=== PATIENT | female | born 1935 | race Caucasian/White ===

== ENCOUNTER 2017-06-07 10:51 | Emergency (ER) | payer MEDICARE, OTHER ==
--- NOTE | 2017-06-07 11:23 | EDM.PDOC ---
ED HPI GENERAL MEDICAL PROBLEM - General Chief Complaint: General Stated Complaint: DIZZINESS, HEART RACING Time Seen by Provider: 06/07/17 11:11 Source of Information: Reports: Patient History Limitations: Reports: No Limitations - History of Present Illness INITIAL COMMENTS - FREE TEXT/NARRATIVE: HISTORY AND PHYSICAL: History of present illness: [82-year-old female with a one-year history of lightheadedness now presents to the emergency department because of the same symptoms. One year ago patient was lightheaded and presented to our emergency department. She was admitted for a full workup including full neurologic and cardiac workup. The evaluation was remarkable for some mild left carotid stenosis which did not require intervention. MRI of her head was unremarkable and patient wore a Holter monitor for a month the results of which were negative she was evaluated fully by substance abuse clinician and an echocardiogram was benign. Her substance abuse clinician Dr. Quiles recommended that no further workup or interventions were indicated and that her "heart is in great shape. " Patient has continued to intermittently have the symptoms over the past year after the complete workup. Per granddaughter the default diagnosis was that she was suffering from anxiety. She has continued to be anxious about these symptoms and presented to the emergency department again after a typical episode. Patient is very worried that something might be wrong. She had no chest pain at any time. She has no focal neurologic deficit or complaint. Normal vision speech strength coordination sensation and gait. Review of systems: As per history of present illness and below otherwise all systems reviewed and negative. Past medical history: As per history of present illness and as reviewed below otherwise noncontributory. Surgical history: As per history of present illness and as reviewed below otherwise noncontributory. Social history: No reported history of drug or alcohol abuse. Family history: As per history of present illness and as reviewed below otherwise noncontributory. Physical exam: Mildly anxious elderly female perfectly groomed in no acute distress alert vigorous cooperative and communicative with supple neck clear lungs regular rate and rhythm noted ,no arrhythmia benign abdomen normal extremities nonfocal extended neuro exam HEENT: Atraumatic, normocephalic, pupils reactive, negative for conjunctival pallor or scleral icterus, mucous membranes moist, throat clear, neck supple, nontender, trachea midline. Lungs: Clear to auscultation, breath sounds equal bilaterally, chest nontender. Heart: S1S2, regular, negative for clicks, rubs, or JVD. Abdomen: Soft, nondistended, nontender. Negative for masses or hepatosplenomegaly. Negative for costovertebral tenderness. Pelvis: Stable nontender. Genitourinary: Deferred. Rectal: Deferred. Extremities: Atraumatic, negative for cords or calf pain. Neurovascular unremarkable. Neuro: Awake, alert, oriented. Cranial nerves II through XII unremarkable. Cerebellum unremarkable. Motor and sensory unremarkable throughout. Exam nonfocal. Diagnostics: [Normal sinus rhythm at 70 normal axis no STEMI Chest x-ray no acute disease interpreted by me report reviewed] Therapeutics: [IV fluids administered] Impression: [Lightheadedness Anxiety regarding medical condition] Plan: [Signs and symptoms consistent with anxiety regarding medical condition elderly patient is perfectly functional and nonfocal neurologically with the same symptoms of intermittent lightheadedness for a year after an exhaustive workup which was negative. Results today benign. Patient feels baseline on reevaluation prior to discharge. Case discussed with primary care Dr. Yanez is aware of history and findings and agrees with outpatient follow-up. Call placed to Dr. Henriquez patient's substance abuse clinician to inform him of her presentation and arrange outpatient follow-up.] Definitive disposition and diagnosis as appropriate pending reevaluation and review of above. - Related Data Allergies Allergy/AdvReac Type Severity Reaction Status Date / Time codeine Allergy Cannot Verified 10/14/16 11:13 Remember diphenhydramine Allergy Cannot Verified 10/14/16 11:14 Remember meperidine [From Demerol] Allergy Cannot Verified 10/14/16 11:14 Remember propoxyphene [From Darvon] Allergy Cannot Verified 10/14/16 11:14 Remember Home Meds: Home Meds Losartan [Cozaar] 100 mg PO DAILY 10/14/16 [History] Simvastatin [Zocor] 10 mg PO BEDTIME #30 tablet 10/15/16 [Rx] Past Medical History HEENT History: Reports: Cataract Cardiovascular History: Reports: Hypertension Respiratory History: Reports: None Gastrointestinal History: Reports: None Genitourinary History: Reports: Hydronephrosis, Renal Calculus 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: Musculoskeletal History: Reports: Arthritis - Infectious Disease History Infectious Disease History: Reports: Chicken Pox - Past Surgical History HEENT Surgical History: Reports: Cataract Surgery, Tonsillectomy Musculoskeletal Surgical History: Reports: Hip Replacement Social & Family History - Family History Cardiac: Reports: Pacemaker Other Cardiac Family History: mother had pacemaker OBGYN: Reports: Neurological: Reports: CVA Other Neurological Family History: father of stroke; mother had a stroke Oncologic: Reports: Colon - Tobacco Use Smoking Status *Q: Never Smoker Second Hand Smoke Exposure: No - Caffeine Use Caffeine Use: Reports: None - Recreational Drug Use Recreational Drug Use: No ED ROS GENERAL - Review of Systems Review Of Systems: See Below (History of present illness) ED EXAM, GENERAL - Physical Exam Exam: See Below (History of present illness) Course - Vital Signs Last Recorded V/S: Last Vital Signs Temp 35.9 C 06/07/17 10:58 Pulse 69 06/07/17 10:58 Resp 18 06/07/17 10:58 BP 204/97 H 06/07/17 10:58 Pulse Ox 98 06/07/17 10:58 - Orders/Labs/Meds Orders: Active Orders 24 hr Category Date Time Status EKG 12 Lead [EKG Documentation Completion] [RC] STAT Care 06/07/17 11:25 Active EKG Documentation Completion [RC] STAT Care 06/07/17 11:36 Inactive Labs: Laboratory Tests 06/07/17 06/07/17 06/07/17 Range/Units 10:55 10:55 11:44 WBC 8.21 (4.0-11.0) K/uL RBC 4.65 (4.30-5.90) M/uL Hgb 14.5 (12.0-16.0) g/dL Hct 42.1 (36.0-46.0) % MCV 90.5 (80.0-98.0) fL MCH 31.2 (27.0-32.0) pg MCHC 34.4 (31.0-37.0) g/dL RDW Std Deviation 43.3 (28.0-62.0) fl RDW Coeff of [place] 13 (11.0-15.0) % Plt Count 255 (150-400) K/uL MPV 9.60 (7.40-12.00) fL Neut % (Auto) 59.0 (48.0-80.0) % Lymph % (Auto) 23.1 (16.0-40.0) % [place] % (Auto) 13.6 (0.0-15.0) % Eos % (Auto) 3.4 (0.0-7.0) % Baso % (Auto) 0.9 (0.0-1.5) % Neut # (Auto) 4.8 (1.4-5.7) K/uL Lymph # (Auto) 1.9 (0.6-2.4) K/uL [place] # (Auto) 1.1 H (0.0-0.8) K/uL Eos # (Auto) 0.3 (0.0-0.7) K/uL Baso # (Auto) 0.1 (0.0-0.1) K/uL Nucleated RBC % 0.0 /100WBC Nucleated RBCs # 0 K/uL Sodium 134 L (136-146) mmol/L Potassium 4.3 (3.5-5.1) mmol/L Chloride 103 (98-110) mmol/L Carbon Dioxide 21 (21-31) mmol/L BUN 16 (6.0-23.0) mg/dL Creatinine 0.9 (0.6-1.5) mg/dL Est Cr Clr Drug Dosing 36.37 mL/min Estimated GFR (MDRD) 59.9 ml/min Glucose 121 H (60-110) mg/dL Calcium 9.6 (8.8-10.8) mg/dL Total Bilirubin 0.6 (0.1-1.5) mg/dL AST 27 (5-40) IU/L ALT 21 (8-54) IU/L Alkaline Phosphatase 136 (40-150) Troponin I < 0.10 (0.0-0.29) NG/ML Total Protein 7.2 (6.0-8.0) g/dL Albumin 4.3 (3.4-4.8) g/dL Globulin 2.9 (2.0-3.5) g/dL Albumin/Globulin Ratio 1.5 (1.3-2.8) TSH 3rd Generation 4.39 (0.47-5.0) uIU/mL Urine Color Urine Appearance Urine pH (5.0-8.0) Ur Specific [place] (1.001-1.035) Urine Protein (NEGATIVE) mg/dL Urine Glucose (UA) (NEGATIVE) mg/dL Urine Ketones (NEGATIVE) mg/dL Urine Occult Blood (NEGATIVE) Urine Nitrite (NEGATIVE) Urine Bilirubin (NEGATIVE) Urine Urobilinogen (<2.0) EU/dL Ur Leukocyte Esterase (NEGATIVE) Urine RBC (0-2/HPF) Urine WBC (0-5/HPF) Ur Epithelial Cells (NONE-FEW) Urine Bacteria (NEGATIVE) 06/07/17 Range/Units 12:35 WBC (4.0-11.0) K/uL RBC (4.30-5.90) M/uL Hgb (12.0-16.0) g/dL Hct (36.0-46.0) % MCV (80.0-98.0) fL MCH (27.0-32.0) pg MCHC (31.0-37.0) g/dL RDW Std Deviation (28.0-62.0) fl RDW Coeff of [place] (11.0-15.0) % Plt Count (150-400) K/uL MPV (7.40-12.00) fL Neut % (Auto) (48.0-80.0) % Lymph % (Auto) (16.0-40.0) % [place] % (Auto) (0.0-15.0) % Eos % (Auto) (0.0-7.0) % Baso % (Auto) (0.0-1.5) % Neut # (Auto) (1.4-5.7) K/uL Lymph # (Auto) (0.6-2.4) K/uL [place] # (Auto) (0.0-0.8) K/uL Eos # (Auto) (0.0-0.7) K/uL Baso # (Auto) (0.0-0.1) K/uL Nucleated RBC % /100WBC Nucleated RBCs # K/uL Sodium (136-146) mmol/L Potassium (3.5-5.1) mmol/L Chloride (98-110) mmol/L Carbon Dioxide (21-31) mmol/L BUN (6.0-23.0) mg/dL Creatinine (0.6-1.5) mg/dL Est Cr Clr Drug Dosing mL/min Estimated GFR (MDRD) ml/min Glucose (60-110) mg/dL Calcium (8.8-10.8) mg/dL Total Bilirubin (0.1-1.5) mg/dL AST (5-40) IU/L ALT (8-54) IU/L Alkaline Phosphatase (40-150) Troponin I (0.0-0.29) NG/ML Total Protein (6.0-8.0) g/dL Albumin (3.4-4.8) g/dL Globulin (2.0-3.5) g/dL Albumin/Globulin Ratio (1.3-2.8) TSH 3rd Generation (0.47-5.0) uIU/mL Urine Color YELLOW Urine Appearance CLEAR Urine pH 6.0 (5.0-8.0) Ur Specific [place] <= 1.005 (1.001-1.035) Urine Protein NEGATIVE (NEGATIVE) mg/dL Urine Glucose (UA) NEGATIVE (NEGATIVE) mg/dL Urine Ketones NEGATIVE (NEGATIVE) mg/dL Urine Occult Blood NEGATIVE (NEGATIVE) Urine Nitrite NEGATIVE (NEGATIVE) Urine Bilirubin NEGATIVE (NEGATIVE) Urine Urobilinogen 0.2 (<2.0) EU/dL Ur Leukocyte Esterase TRACE (NEGATIVE) Urine RBC NONE SEEN (0-2/HPF) Urine WBC 0-2 (0-5/HPF) Ur Epithelial Cells FEW (NONE-FEW) Urine Bacteria FEW (NEGATIVE) Meds: Medications Discontinued Medications Generic Name Dose Route Start Last Admin Trade Name Rhonda PRN Reason Stop Dose Admin Sodium Chloride 1,000 mls @ 999 mls/hr 06/07/17 11:36 06/07/17 12:10 Normal Saline IV 06/07/17 12:36 999 mls/hr .Bolus ONE Administration Departure - Departure Time of Disposition: 14:37 Disposition: Home, Self-Care 01 Condition: Good Clinical Impression: Episodic lightheadedness, Anxiety about health - Discharge Information Referrals: PCP,None [Primary Care Provider] - Forms: ED Department Discharge Additional Instructions: We have found no threatening cause for your lightheadedness today. As we discussed, a very exhaustive workup of your lightheadedness one year ago showed no significant abnormality. Your symptoms have manifested themselves intermittently over the last year in your emergency department workup today was also negative. All your results were discussed with Dr. Yanez he is aware of the history and findings and agrees with outpatient follow-up in his office. Call today for an appointment. Also follow-up with Dr. Randolph Patrickn your substance abuse clinician. Return immediately for new severe or worsening symptoms. - My Orders Last 24 Hours: My Active Orders 06/07/17 11:25 EKG 12 Lead [EKG Documentation Completion] [RC] STAT 06/07/17 11:36 EKG Documentation Completion [RC] STAT - Assessment/Plan Last 24 Hours: My Active Orders 06/07/17 11:25 EKG 12 Lead [EKG Documentation Completion] [RC] STAT 06/07/17 11:36 EKG Documentation Completion [RC] STAT
[2017-06-07] MEDS ORDERED: Sodium Chloride 0.9% 1,000 ML IV ONE (11:36)
--- NOTE | 2017-06-07 12:11 | CR ---
EXAMINATION: Portable chest radiograph. HISTORY: Chest eval. FINDINGS: The trachea is midline. The cardiomediastinal silhouette is within normal limits. No pulmonary infilt rates, effusions or pneumothorax. Osseous structures appear unremarkable. IMPRESSION: No acute cardiopulmonary process.
[2017-06-07 15:45] VITALS: BP 190/88
== END 2017-06-07 15:53 | disposition home or self-care (01) ==
LOC: MW.ED 10:51
DX: R42 Dizziness and giddiness (principal); F41.9 Anxiety disorder, unspecified; I10 Essential (primary) hypertension; M19.90 Unspecified osteoarthritis, unspecified site; Z98.49 Cataract extraction status, unspecified eye; Z96.649 Presence of unspecified artificial hip joint; Z79.899 Other long term (current) drug therapy; Z88.5 Allergy status to narcotic agent; Z88.8 Allergy status to other drugs, medicaments and biological substances; Z87.442 Personal history of urinary calculi
CPT/HCPCS: 36415; 71010; 80053; 81001; 84443; 84484; 85025; 93005; 96360; 99284; J7040; 99283

== ENCOUNTER 2018-10-02 06:46 | Inpatient (IN) | payer MEDICARE, OTHER ==
[2018-10-02] MEDS ORDERED: Phenylephrine/Normal Saline 100 MCG/ML 10 ML Syringe ONE (06:51)
[2018-10-02] MEDS ORDERED: Midazolam 1 MG/ML 2 ML SDV ONE (06:51)
[2018-10-02] MEDS ORDERED: fentaNYL 100 MCG/2 ML SDV ONE (06:51)
[2018-10-02] MEDS ORDERED: Propofol 200 MG/20 ML SDV ONE (06:51)
[2018-10-02] MEDS ORDERED: Lactated Ringers 1,000 ML IV SCH (07:00)
[2018-10-02] MEDS ORDERED: ceFAZolin 2 GM in Premix Bag 1 BAG IV SCH (07:00)
--- NOTE | 2018-10-02 07:08 | PCM.PREANE ---
Preanesthetic Assessment - Procedure Proposed Procedure: left total hip replacement - Anesthesia/Transfusion/Family Hx Anesthesia History: Prior Anesthesia Without Reaction (right hip, right foot, T+ A, lap oxana, hyst, ESWL, bunion, hand: No problems with anesthesia) Family History of Anesthesia Reaction: No Transfusion History: No Prior Transfusion(s) - Review of Systems General: No Symptoms Pulmonary: No Symptoms (copd) Cardiovascular: No Symptoms (hypertension with syncopal episodes which may be due to pre existing anxiety(per ER MD), but patient says it was due to low BP due to doubling her BPmed dose perioperatively.) Gastrointestinal: No Symptoms (GERD and kidney stones) Neurological: No Symptoms Other: Reports: None - Physical Assessment NPO Status Date: 10/02/18 NPO Status Time: 00:00 Pulse: 75 O2 Sat by Pulse Oximetry: 95 Respiratory Rate: 18 Blood Pressure: 172/78 Temperature: 35.9 C Height: 1.56 m Weight: 58.967 kg ASA Class: 3 Mental Status: Alert & Oriented x3 Dentition: Reports: Normal Dentition Thyro-Mental Finger Breadths: 2 Mouth Opening Finger Breadths: 3 ROM/Head Extension: Full Lungs: Clear to Auscultation, Normal Respiratory Effort Cardiovascular: Regular Rate, Regular Rhythm, No Murmurs - Lab Values: labs `09/08/18: CBC is wnl, HH=15.4/45.3 CMP: BUN=27, CREAT=1.21 UA= WNL EKG: nsr CXR=copd - Allergies Allergies/Adverse Reactions: Allergies Allergy/AdvReac Type Severity Reaction Status Date / Time codeine Allergy Cannot Verified 09/27/18 16:11 Remember diphenhydramine Allergy Cannot Verified 09/27/18 16:11 Remember meperidine [From Demerol] Allergy Cannot Verified 09/27/18 16:11 Remember propoxyphene [From Darvon] Allergy Cannot Verified 09/27/18 16:11 Remember - Blood Blood Available: Yes Product(s) Available: PRBC (type and screen) - Anesthesia Plan Pre-Op Medication Ordered: None - Acknowledgements Anesthesia Type Planned: Spinal (Plan: SAB with GA backup. Discusssed with patient and daughter, all questions answered, consent signed.) Pt an Appropriate Candidate for the Planned Anesthesia: Yes Alternatives and Risks of Anesthesia Discussed w Pt/Guardian: Yes Pt/Guardian Understands and Agrees with Anesthesia Plan: Yes PreAnesthesia Questionnaire HEENT History: Reports: Other (See Below) Other HEENT History: wears glasses Cardiovascular History: Reports: High Cholesterol, Hypertension Respiratory History: Reports: None Gastrointestinal History: Reports: GERD Other Gastrointestinal History: GERD in the past- not recently Genitourinary History: Reports: Renal Calculus MEDICAL CERTIFICATION SPECIALIST History: Reports: Musculoskeletal History: Reports: Arthritis - Infectious Disease History Infectious Disease History: Reports: Chicken Pox - Past Surgical History Head Surgeries/Procedures: Reports: None HEENT Surgical History: Reports: Tonsillectomy GI Surgical History: Reports: Cholecystectomy Female Surgical History: Reports: Hysterectomy, Lithotripsy/ESWL Musculoskeletal Surgical History: Reports: Hip Replacement, Other (See Below) Other Musculoskeletal Surgeries/Procedures:: hx of right bunnionectomy (has pin in second toe), hx right [place] (has hardware) and hx of closed reduction of fingers right hand with pin fixation- pin later removed - SUBSTANCE USE Smoking Status *Q: Former Smoker Tobacco Use Within Last Twelve Months: No Recreational Drug Use History: No - HOME MEDS Home Medications: Home Meds Losartan [Cozaar] 100 mg PO QAM 10/14/16 [History] Simvastatin [Zocor] 10 mg PO BEDTIME #30 tablet 10/15/16 [Rx] Metoprolol Succinate [Toprol XL] 50 mg PO BEDTIME 06/07/17 [History] Alendronate Sodium 70 mg PO WEEKLY 09/27/18 [History] Calcium Carb & Citrate/Vit D3 [Calcium + D3 ER Tablet] 1 cap PO BID 09/27/18 [ History] Glucosa Philip 2KCl/Chondroitin Philip [Glucosamine-Chondroitin Cap] 1 cap PO BID [History] Magnesium 250 mg PO DAILY 09/27/18 [History] Multivits-Min/Iron/FA/Lutein [Centrum Silver Women Tablet] 1 tab PO DAILY [History] amLODIPine [Norvasc] 2.5 mg PO QAM 09/27/18 [History] - CURRENT (IN HOUSE) MEDS Current Meds: Current Medications Lactated Ringer's (Ringers, Lactated) 1,000 mls @ 125 mls/hr IV ASDIRECTED STEWART Cefazolin Sodium/Dextrose 2 gm (/ Premix) 50 mls @ 100 mls/hr IV ONETIME STEWART Lactated Ringer's (Ringers, Lactated) 1,000 mls @ 100 mls/hr IV ASDIRECTED STEWART Tranexamic Acid (Cyklokapron) 2,000 mg IV ONETIME ONE Stop: 10/02/18 08:01 Discontinued Medications Fentanyl (Sublimaze) Confirm Administered Dose 100 mcg .ROUTE .STK-MED ONE Stop: 10/02/18 06:52 Midazolam HCl (Versed 1 Mg/Ml) Confirm Administered Dose 2 mg .ROUTE .STK-MED ONE Stop: 10/02/18 06:52 Phenylephrine HCl (Phenylephrine In Ns 100 Mcg/Ml) Confirm Administered Dose 1 mg .ROUTE .STK-MED ONE Stop: 10/02/18 06:52 Propofol (Diprivan 20 Ml) Confirm Administered Dose 200 mg .ROUTE .STK-MED ONE Stop: 10/02/18 06:52
[2018-10-02] MEDS: Lactated Ringers 1,000 ML IV SCH ×2 (07:20→17:13)
[2018-10-02] MEDS ORDERED: ceFAZolin 1 GM Vial ONE ×2 (07:22)
[2018-10-02] MEDS ORDERED: Sodium Chloride 0.9% 20 ML ONE (07:23)
[2018-10-02] MEDS ORDERED: HYDROmorphone 2 MG/ML Syringe IVPUSH PRN (07:50)
[2018-10-02] MEDS ORDERED: fentaNYL 100 MCG/2 ML SDV IVPUSH PRN (07:50)
[2018-10-02] MEDS ORDERED: Ondansetron 4 MG/2 ML SDV IVPUSH SCH (08:00)
--- NOTE | 2018-10-02 09:32 | PCM.OPNOTE ---
- General Post-Op/Procedure Note Date of Surgery/Procedure: 10/02/18 Operative Procedure(s): left anterior total hip arthroplasty Findings: severe OA Pre Op Diagnosis: left hip osteoarthritis Post-Op Diagnosis: same Anesthesia Technique: Moderate Sedation, Spinal Primary Surgeon: Tan Maria Mai Radiology Rn: Gudelia Oseguera Pathology: femoral head EBL in mLs: 200 Complications: none Condition: Good
[2018-10-02] MEDS ORDERED: Sodium Chloride 0.9% 2.5 ML Syringe FLUSH PRN (09:41)
[2018-10-02] MEDS ORDERED: Aluminum Hydroxide/Magnesium Hydroxide/Simethicone Susp 30 ML Cup PO PRN (09:41)
[2018-10-02] MEDS ORDERED: Bisacodyl 10 MG Supp RECTAL PRN (09:41)
[2018-10-02] MEDS ORDERED: Ondansetron 4 MG/2 ML SDV IVPUSH PRN (09:41)
[2018-10-02] MEDS ORDERED: Sodium Chloride 0.9% 10 ML Syringe FLUSH PRN (09:41)
[2018-10-02] MEDS ORDERED: Docusate Sodium 100 MG Cap PO PRN (09:41)
--- NOTE | 2018-10-02 10:11 | PCM.POSTAN ---
POST ANESTHESIA ASSESSMENT - MENTAL STATUS Mental Status: Alert, Oriented - RESPIRATORY Respiratory Status: Respiratory Rate WNL, Airway Patent, O2 Saturation Stable - CARDIOVASCULAR CV Status: Pulse Rate WNL, Blood Pressure Stable - GASTROINTESTINAL GI Status: No Symptoms - POST OP HYDRATION Hydration Status: Adequate & Stable
--- NOTE | 2018-10-02 11:21 | PCM.CONS ---
Addendum entered and electronically signed by Cate Turner NP 10/02/18 13:59 : Admission diagnosis is incorrect, pulls in from admission order. Patient DOES NOT have penumonia. Admitted with L anterior hip replacement. Original Note: H&P History of Present Illness - General Date of Service: 10/02/18 Admit Problem/Dx: Admission Diagnosis/Problem Admission Diagnosis/Problem Pneumonia Source of Information: Patient History Limitations: Reports: No Limitations - History of Present Illness Initial Comments - Free Text/Narative: THis 83 year old female admitted with L anterior hip replacement today with Dr Pereira. Has a pmh of HTN and hyperlipidemia. Hospitalist team consulted due to comorbidities. She recently arrived to Med/Surg from PACU. Pat (nickname) is alert and oriented, starting to have a little discomfort to her left hip but otherise is doing well. No chest pain or SOB. No abdominal pain. Reports she has a history of HTN and with her last hip in [place] she reports very low sodium after surgery. She reports she had trouble voiding after surgery last time. No other concerns currently. PCP, Dr Palacios. - Related Data Allergies/Adverse Reactions: Allergies Allergy/AdvReac Type Severity Reaction Status Date / Time codeine Allergy Cannot Verified 09/27/18 16:11 Remember diphenhydramine Allergy Cannot Verified 09/27/18 16:11 Remember meperidine [From Demerol] Allergy Cannot Verified 09/27/18 16:11 Remember propoxyphene [From Darvon] Allergy Cannot Verified 09/27/18 16:11 Remember Home Medications: Home Meds Losartan [Cozaar] 100 mg PO QAM 10/14/16 [History] Simvastatin [Zocor] 10 mg PO BEDTIME #30 tablet 10/15/16 [Rx] Metoprolol Succinate [Toprol XL] 50 mg PO BEDTIME 06/07/17 [History] Alendronate Sodium 70 mg PO WEEKLY 09/27/18 [History] Calcium Carb & Citrate/Vit D3 [Calcium + D3 ER Tablet] 1 cap PO BID 09/27/18 [ History] Glucosa Philip 2KCl/Chondroitin Philip [Glucosamine-Chondroitin Cap] 1 cap PO BID [History] Magnesium 250 mg PO DAILY 09/27/18 [History] Multivits-Min/Iron/FA/Lutein [Centrum Silver Women Tablet] 1 tab PO DAILY [History] amLODIPine [Norvasc] 2.5 mg PO QAM 09/27/18 [History] Past Medical History HEENT History: Reports: Other (See Below) Other HEENT History: wears glasses Cardiovascular History: Reports: High Cholesterol, Hypertension. Denies: Blood Clots/VTE/DVT, CAD, ND Respiratory History: Reports: None. Denies: COPD Gastrointestinal History: Reports: GERD Other Gastrointestinal History: GERD in the past- not recently Genitourinary History: Reports: Renal Calculus TRESTLEMAN History: Reports: Musculoskeletal History: Reports: Arthritis Neurological History: Denies: CVA, TIA - Infectious Disease History Infectious Disease History: Reports: Chicken Pox - Past Surgical History Head Surgeries/Procedures: Reports: None HEENT Surgical History: Reports: Tonsillectomy GI Surgical History: Reports: Cholecystectomy Female Surgical History: Reports: Hysterectomy, Lithotripsy/ESWL Musculoskeletal Surgical History: Reports: Hip Replacement, Other (See Below) Other Musculoskeletal Surgeries/Procedures:: hx of right bunnionectomy (has pin in second toe), hx right [place] (has hardware) and hx of closed reduction of fingers right hand with pin fixation- pin later removed Social & Family History - Family History Cardiac: Reports: Pacemaker Other Cardiac Family History: mother had pacemaker OBGYN: Reports: Neurological: Reports: CVA Other Neurological Family History: father of stroke; mother had a stroke Oncologic: Reports: Colon - Tobacco Use Smoking Status *Q: Former Smoker Tobacco Use Comment: quit 40 years ago - Caffeine Use Caffeine Use: Reports: None - Recreational Drug Use Recreational Drug Use: No Drug Use in Last 12 Months: No H&P Review of Systems - Review of Systems: Review Of Systems: See Below General: Reports: No Symptoms. Denies: Fever, Chills, Malaise HEENT: Reports: No Symptoms. Denies: Ear Pain, Hearing Changes, Visual Changes Pulmonary: Reports: No Symptoms. Denies: Shortness of Breath, Cough, Sputum Cardiovascular: Reports: No Symptoms. Denies: Chest Pain, Edema, Lightheadedness, Blood Pressure Problem Gastrointestinal: Reports: No Symptoms. Denies: Abdominal Pain Genitourinary: Reports: No Symptoms, Other (noonan in place) Musculoskeletal: Reports: Joint Pain (L hip starting to be uncomfortable.) Skin: Reports: No Symptoms Psychiatric: Reports: No Symptoms Neurological: Reports: No Symptoms Exam - Exam Exam: See Below - Vital Signs Vital Signs: Last Vital Signs Temp 96.6 F 10/02/18 07:50 Pulse 60 10/02/18 09:55 Resp 16 10/02/18 09:55 BP 109/48 L 10/02/18 09:55 Pulse Ox 99 10/02/18 09:55 Weight: 58.967 kg - Exam Quality Assessment: Supplemental Oxygen, Urinary Catheter General: Alert, Oriented, Cooperative HEENT: Conjunctiva Clear, Mucosa Moist & [place], Pupils Reactive Neck: Supple, Trachea Midline, 2 Lungs: Clear to Auscultation, Normal Respiratory Effort Cardiovascular: Regular Rate, Regular Rhythm, Normal S1, Normal S2. No: Systolic Murmur GI/Abdominal Exam: Normal Bowel Sounds, Soft, Non-Tender, No Mass Back Exam: Normal Inspection, Full Range of Motion Extremities: Normal Inspection, Normal Range of Motion, No Pedal Edema, Normal Capillary Refill Skin: Incision (L hip, CDI) Neurological: Cranial Nerves Intact, Reflexes Equal Bilateral Neuro Extensive - Mental Status: Alert Psychiatric: Alert, Normal Affect, Normal Mood - Patient Data Lab Results Last 24 hrs: Laboratory Results - last 24 hr 10/02/18 Range/Units 07:30 Blood Type O POSITIVE Antibody Screen NEGATIVE Result Diagrams: 10/02/18 11:58 10/02/18 11:58 Consult PN Assessment/Plan Procedures: Procedures ASSAY OF MAGNESIUM (10/14/16) ASSAY OF TROPONIN QUANT (06/07/17) ASSAY THYROID STIM HORMONE (06/07/17) CHEST X-RAY 1 VIEW FRONTAL (06/07/17) COMPLETE CBC W/AUTO DIFF WBC (06/07/17) COMPREHEN METABOLIC PANEL (06/07/17) CT ABDOMEN W/O & W/DYE (01/04/14) CT HEAD/BRAIN W/O DYE (10/14/16) DRAIN/INJ JOINT/BURSA W/O US (07/17/15) ECG MONIT/REPRT UP TO 48 HRS (10/14/16) ELECTROCARDIOGRAM TRACING (06/07/17) EMERGENCY DEPT VISIT (06/07/17) EMERGENCY DEPT VISIT (10/14/16) EXTRACRANIAL BILAT STUDY (10/14/16) HYDRATION IV INFUSION INIT (06/07/17) LIPID PANEL (10/14/16) METABOLIC PANEL TOTAL CA (10/14/16) MR ANGIOGRAPHY HEAD W/O DYE (10/14/16) MR ANGIOGRAPHY NECK W/O DYE (10/14/16) MRI BRAIN STEM W/O & W/DYE (10/14/16) NEEDLE LOCALIZATION BY XRAY (07/17/15) OFFICE/OUTPATIENT VISIT EST (04/25/18) ROUTINE VENIPUNCTURE (06/07/17) THER/PROPH/DIAG INJ IV PUSH (10/14/16) TTE W/DOPPLER COMPLETE (10/14/16) URINALYSIS AUTO W/SCOPE (06/07/17) X-RAY EXAM HIP UNI 2-3 VIEWS (04/25/18) X-RAY EXAM OF HIP (06/12/15) X-RAY EXAM OF PELVIS (06/12/15) (1) S/P hip replacement SNOMED Code(s): 835563248, 259350731, 346473981, 393480684 Code(s): Z96.649 - PRESENCE OF UNSPECIFIED ARTIFICIAL HIP JOINT Current Visit: No Qualifiers: Laterality: left Qualified Code(s): Z96.642 - Presence of left artificial hip joint (2) HTN (hypertension) SNOMED Code(s): 82404735 Code(s): I10 - ESSENTIAL (PRIMARY) HYPERTENSION Current Visit: No Qualifiers: Hypertension type: essential hypertension Qualified Code(s): I10 - Essential (primary) hypertension Problem List Initiated/Reviewed/Updated: Yes Plan: This 83 year old female admitted with L anterior hip replacement, hospitalist service consulted for medical management 1. S/P L hip replacement: Per Orthopedics 2. HTN: Continue home medications of Cozaar, Norvasc, and Metoprolol. Monitor BMP 3. Hx Hyponatremia: Monitor labs daily. VTE prophylaxis: Would recommended when deemed appropriate by Orthopedics.
[2018-10-02] MEDS: Acetaminophen/HYDROcodone 325-5 MG Tab PO PRN ×4 (11:32→23:07)
[2018-10-02] MEDS: ceFAZolin 1 GM in Premix Bag 1 BAG IV SCH ×2 (15:09→23:07)
--- NOTE | 2018-10-02 15:24 | OR ---
SURGEON: Tan Pereira MD DATE OF PROCEDURE: 10/02/2018 REVERBERATORY FURNACE OPERATOR: Gudelia Oseguera PA-C PREOPERATIVE DIAGNOSIS: Left anterior total hip arthroplasty. ANESTHESIA: Spinal with sedation. COMPLICATIONS: None. ESTIMATED BLOOD LOSS: 200 mL. SPECIMENS: Femoral head. IMPLANTS: Ja Continuum trabecular metal shell, cluster holes, 50-mm outer diameter; Vivacit-E neutral liner, 32-mm inner diameter; one 6.5 x 30 mm length bone screw; m/L Taper press-fit stem, size 6 extended offset, reduced neck length; Biolox delta ceramic femoral head, 32 mm diameter, and zero neck length. INDICATIONS: The patient is an 83-year-old female with severe arthritis. She has failed conservative management. She understands the risks, benefits, alternatives and complications of the procedure and she wished to proceed with replacement. These include, but not limited to, infection, neurovascular injury, continued pain, DVT, PE, stroke, NC, , leg-length discrepancy, fracture, dislocation, and she wished to proceed. DESCRIPTION OF PROCEDURE: The patient was seen in the preoperative area, operative extremity was marked and the patient was transferred to the operating room, and spinal anesthesia was given. She was placed supine on the Persaud table and sedation was utilized, placed in leg bars with a narrow perineal post, and the left hip was prepped and draped in sterile fashion using alcohol, followed by ChloraPrep with Ioban covering. A formal time-out was taken identifying the correct patient, procedure, and extremity. She received preop antibiotics, Ancef and 2 g of TXA. An 8 cm incision starting laterally ASIS going obliquely down femur was made. Dissection was carried down to subcutaneous tissues. Hemostasis was obtained. The fascia overlying the TFL was opened lateral to the lateral femoral cutaneous nerve. The interval between the TFL and sartorius deep between the abductors, and rectus was opened. The anterior vessels were coagulated. The vastus lateralis fascia was opened. The indirect head of the rectus was released. A deep Paul retractor was placed and the capsule was held and tagged with two sutures. The deep retractors were placed and then the neck was kept in saddle region 1 cm above the lesser trochanter and the head was removed. There was severe arthritis. The inferior capsule was released and pulvinar and the remnants of the labrum were removed. The iliopsoas tendon was left intact. Head measured about 46, sequential reaming from 45 to 49 mm was made, going slightly superior and medially to get good fit and fill. This had excellent peripheral fit, and therefore, the Continuum trabecular metal shell with cluster holes was placed with a screw hole straight superior in 10 degrees of anteversion and 40 degrees of abduction. There was excellent press fit. Once straight superior bone screw was placed after drilling. The wound was irrigated and the neutral liner was impacted. The femoral lift was placed. The leg was externally rotated, abducted, and extended. A central canal finder utilized and the hip was sequentially broached from size 4 up to size 7.5. This sat proud, and so therefore, it was trialed with a 6 which sat several millimeters below the neck cut, and it was deemed appropriate based on the area of the cut. This followed the [place] version, and we trial reduced with a reduced neck, standard offset, zero head. Printed overlay technique showed equal leg lengths and offset compared to the opposite side. Therefore, the hip was dislocated. The final 6 was impacted, following the [place] version, and the final zero neck length and 32-mm head was impacted. The hip was then relocated. There was no shuck with stable range of motion. Two tag sutures were tied together. The wound was thoroughly irrigated. The fascia closed with #1 Stratafix, subcutaneous tissues with 2-0 Stratafix, skin with running 4-0 Monocryl. Dermabond tape was placed and an Aquacel dressing. The patient was transferred to the recovery room in stable condition. Sponge and needle counts were correct at the end of the case with no complications. PLAN: The patient will follow postoperative protocol with taking aspirin for DVT prophylaxis. ANGELA / MYLA /[id number]
--- NOTE | 2018-10-02 16:48 | CR ---
EXAMINATION: Left hip HISTORY: Arthroplasty COMPARISON: 04/25/2018 TECHNIQUE: 3 fluoroscopic images provided FINDINGS/IMPRESSION: Operative control film imaging demonstrates placement of left total hip hardware in good position and alignment.
[2018-10-02] MEDS ORDERED: Simvastatin 10 MG Tab PO SCH (21:00)
[2018-10-02] MEDS ORDERED: Metoprolol Succinate 50 MG Tab.ER PO SCH (21:00)
[2018-10-03] MEDS: Morphine 2 MG/ML Syringe IVPUSH PRN ×2 (01:43→06:21)
[2018-10-03] MEDS: Acetaminophen/HYDROcodone 325-5 MG Tab PO PRN (03:49)
[2018-10-03] MEDS ORDERED: Morphine 2 MG/ML Syringe IVPUSH PRN (06:00)
[2018-10-03 06:11] LABS: CHLORIDE,CL 102 mmol/L (98-107); SODIUM,NA 134 mmol/L (136-145)
--- NOTE | 2018-10-03 07:39 | PCM.SN ---
- Free Text/Narrative Note: S: pain well controlled. ambulating well in hallway. some nausea this morning. some difficulty getting out of bed on own tolerating PO. No other issues. O: afebrile, vital signs stable dressing clean/dry/intact. normal sensation and motor distally. 2+ DP. no selling in thigh or distally hgb 11.0 A/P: POD # 1 left anterior [place] - full weight bearing with walker - ecotrin/SCDs for DVT prophylaxis - to home today possible depending on how she does.
--- NOTE | 2018-10-03 07:52 | PCM48HPAN ---
Post Anesthesia Note - EVALUATION WITHIN 48HRS OF ANESTHETIC Vital Signs in Normal Range: Yes Patient Participated in Evaluation: Yes Respiratory Function Stable: Yes Airway Patent: Yes Cardiovascular Function Stable: Yes Hydration Status Stable: Yes Pain Control Satisfactory: Yes Nausea and Vomiting Control Satisfactory: Yes Mental Status Recovered: Yes Pulse Rate: 78 Resp Rate: 18 Temperature: 96.6 F Blood Pressure: 126/58 - COMMENTS/OBSERVATIONS Free Text/Narrative:: Pt currently up in a chair at this bedside. States that she just recently threw up after getting IV morphine for pain and then getting out of bed - she states she does have some issues with her BP sometimes, which may have been the cause. Currently she is doing well sitting up and just wants to rest her eyes in the chair. She states that overnight she did have some problems with pain control, which is why they switched to IV morphine. VSS.
[2018-10-03] MEDS: Multivitamins with Iron/Calcium/Folic Acid/Minerals Tab PO SCH ×2 (08:11→08:43)
[2018-10-03] MEDS: Famotidine 20 MG Tab PO SCH ×2 (08:11→08:44)
[2018-10-03] MEDS: Aspirin 325 MG Tab.EC PO SCH ×2 (08:12→08:43)
[2018-10-03] MEDS: Magnesium Oxide 400 MG Tab PO SCH ×2 (08:12→08:44)
--- NOTE | 2018-10-03 08:44 | PCM.CONSN ---
- General Info Date of Service: 10/03/18 Admission Dx/Problem (Free Text): Admission Diagnosis/Problem Admission Diagnosis/Problem L hip replacement Subjective Update: Not feeling so good this morning, had a bout of nausea after some Morphine and hasn't felt good since. Pain is well controlled. No chest pain or SOB. No Confusion. Functional Status: Reports: Pain Controlled, Tolerating Diet, Ambulating - Review of Systems General: Reports: Fatigue. Denies: Fever HEENT: Reports: No Symptoms. Denies: Headaches, Sore Throat, Visual Changes Pulmonary: Reports: No Symptoms. Denies: Shortness of Breath, Cough, Sputum, Wheezing Cardiovascular: Reports: No Symptoms. Denies: Chest Pain, Palpitations, Orthopnea, Edema Gastrointestinal: Reports: Nausea. Denies: Abdominal Pain, Vomiting Genitourinary: Reports: No Symptoms. Denies: Dysuria, Frequency Musculoskeletal: Reports: No Symptoms Skin: Reports: No Symptoms Neurological: Reports: No Symptoms Psychiatric: Reports: No Symptoms - Patient Data Vitals - Most Recent: Last Vital Signs Temp 96.6 F 10/03/18 07:52 Pulse 78 10/03/18 07:52 Resp 18 10/03/18 07:52 BP 126/58 L 10/03/18 07:52 Pulse Ox 92 L 10/03/18 04:00 Weight - Most Recent: 58.967 kg I&O - Last 24 Hours: Intake & Output 10/02/18 10/03/18 10/03/18 22:59 06:59 14:59 Intake Total 840 3207 Output Total 500 250 Balance 340 2957 Lab Results Last 24 Hours: Laboratory Results - last 24 hr 10/02/18 10/02/18 10/03/18 Range/Units 11:58 11:58 05:50 WBC 9.44 (4.0-11.0) K/uL RBC 3.87 L (4.30-5.90) M/uL Hgb 12.2 10.3 L (12.0-16.0) g/dL Hct 36.0 30.3 L (36.0-46.0) % MCV 93.0 (80.0-98.0) fL MCH 31.5 (27.0-32.0) pg MCHC 33.9 (31.0-37.0) g/dL RDW Std Deviation 45.0 (28.0-62.0) fl RDW Coeff of [place] 13 (11.0-15.0) % Plt Count 181 (150-400) K/uL MPV 9.90 (7.40-12.00) fL Neut % (Auto) 64.1 (48.0-80.0) % Lymph % (Auto) 20.2 (16.0-40.0) % [place] % (Auto) 14.4 (0.0-15.0) % Eos % (Auto) 1.1 (0.0-7.0) % Baso % (Auto) 0.2 (0.0-1.5) % Neut # (Auto) 6.1 H (1.4-5.7) K/uL Lymph # (Auto) 1.9 (0.6-2.4) K/uL [place] # (Auto) 1.4 H (0.0-0.8) K/uL Eos # (Auto) 0.1 (0.0-0.7) K/uL Baso # (Auto) 0.0 (0.0-0.1) K/uL Nucleated RBC % 0.0 /100WBC Nucleated RBCs # 0 K/uL Sodium 143 (136-145) mmol/L Potassium 4.3 (3.5-5.1) mmol/L Chloride 109 H (98-107) mmol/L Carbon Dioxide 24.6 (21.0-32.0) mmol/L BUN 18 (7.0-18.0) mg/dL Creatinine 1.0 (0.6-1.0) mg/dL Est Cr Clr Drug Dosing 32.94 mL/min Estimated GFR (MDRD) 53.0 ml/min Glucose 110 H (74-106) mg/dL Calcium 9.0 (8.5-10.1) mg/dL Magnesium 2.0 (1.8-2.4) mg/dL 10/03/18 Range/Units 05:50 WBC (4.0-11.0) K/uL RBC (4.30-5.90) M/uL Hgb (12.0-16.0) g/dL Hct (36.0-46.0) % MCV (80.0-98.0) fL MCH (27.0-32.0) pg MCHC (31.0-37.0) g/dL RDW Std Deviation (28.0-62.0) fl RDW Coeff of [place] (11.0-15.0) % Plt Count (150-400) K/uL MPV (7.40-12.00) fL Neut % (Auto) (48.0-80.0) % Lymph % (Auto) (16.0-40.0) % [place] % (Auto) (0.0-15.0) % Eos % (Auto) (0.0-7.0) % Baso % (Auto) (0.0-1.5) % Neut # (Auto) (1.4-5.7) K/uL Lymph # (Auto) (0.6-2.4) K/uL [place] # (Auto) (0.0-0.8) K/uL Eos # (Auto) (0.0-0.7) K/uL Baso # (Auto) (0.0-0.1) K/uL Nucleated RBC % /100WBC Nucleated RBCs # K/uL Sodium 134 L (136-145) mmol/L Potassium 4.0 (3.5-5.1) mmol/L Chloride 102 (98-107) mmol/L Carbon Dioxide 27.3 (21.0-32.0) mmol/L BUN 14 (7.0-18.0) mg/dL Creatinine 0.8 (0.6-1.0) mg/dL Est Cr Clr Drug Dosing 41.17 mL/min Estimated GFR (MDRD) > 60.0 ml/min Glucose 119 H (74-106) mg/dL Calcium 8.4 L (8.5-10.1) mg/dL Magnesium (1.8-2.4) mg/dL Med Orders - Current: Current Medications Hydrocodone Bitart/Acetaminophen ([place] 325-5 Mg) 1 - 2 tab PO Q4H PRN PRN Reason: Pain Last Admin: 10/03/18 03:49 Dose: 2 tab Al Hydroxide/Mg Hydroxide (Mag-Al Plus) 30 ml PO Q4H PRN PRN Reason: Indigestion Alendronate Sodium (Fosamax) 70 mg PO Sa@0800 [place] Amlodipine Besylate (Norvasc) 2.5 mg PO QAM [place] Aspirin (Ecotrin) 325 mg PO BID [facility] Last Admin: 10/03/18 08:12 Dose: 325 mg Bisacodyl (Dulcolax) 10 mg RECTAL DAILY PRN PRN Reason: Constipation Docusate Sodium (Colace) 100 mg PO BID PRN PRN Reason: Constipation Famotidine (Pepcid) 20 mg PO DAILY [facility] Last Admin: 10/03/18 08:11 Dose: 20 mg Lactated Ringer's (Ringers, Lactated) 1,000 mls @ 100 mls/hr IV ASDIRECTED [facility] Last Admin: 10/02/18 17:13 Dose: 100 mls/hr Losartan Potassium (Cozaar) 100 mg PO QAM [facility] Magnesium Oxide (Magnesium Oxide) 400 mg PO DAILY [facility] Last Admin: 10/03/18 08:12 Dose: 400 mg Metoprolol Succinate (Toprol Xl) 50 mg PO BEDTIME [facility] Last Admin: 10/02/18 20:08 Dose: 50 mg Morphine Sulfate (Morphine) 1 - 3 mg IVPUSH Q3H PRN PRN Reason: Pain Last Admin: 10/03/18 06:21 Dose: 2 mg Multivitamins/Minerals (Thera M Plus) 1 tab PO DAILY [facility] Last Admin: 10/03/18 08:11 Dose: 1 tab Ondansetron HCl (Zofran) 4 mg IVPUSH Q6H PRN PRN Reason: Nausea/Vomiting Last Admin: 10/03/18 08:10 Dose: 4 mg Polyethylene Glycol (Miralax) 17 gm PO DAILY [facility] Last Admin: 10/03/18 08:12 Dose: Not Given Simvastatin (Zocor) 10 mg PO BEDTIME [facility] Last Admin: 10/02/18 20:08 Dose: 10 mg Sodium Chloride (Saline Flush) 10 ml FLUSH ASDIRECTED PRN PRN Reason: Keep Vein Open Sodium Chloride (Saline Flush) 2.5 ml FLUSH ASDIRECTED PRN PRN Reason: Keep Vein Open Discontinued Medications Cefazolin Sodium (Ancef) Confirm Administered Dose 1 gm .ROUTE .STK-MED ONE Stop: 10/02/18 07:23 Cefazolin Sodium (Ancef) Confirm Administered Dose 1 gm .ROUTE .STK-MED ONE Stop: 10/02/18 07:23 Fentanyl (Sublimaze) Confirm Administered Dose 100 mcg .ROUTE .STK-MED ONE Stop: 10/02/18 06:52 Fentanyl (Sublimaze) 50 mcg IVPUSH Q5M PRN PRN Reason: Pain (severe 7-10) Stop: 10/03/18 07:50 Hydromorphone HCl (Dilaudid) 0.25 mg IVPUSH Q10M PRN PRN Reason: Pain (severe 7-10) Stop: 10/03/18 07:50 Lactated Ringer's (Ringers, Lactated) 1,000 mls @ 125 mls/hr IV ASDIRECTED [facility] Last Infusion: 10/02/18 15:20 Dose: Infused Sodium Chloride (Normal Saline) Confirm Administered Dose 20 mls @ as directed .ROUTE .STK-MED ONE Stop: 10/02/18 07:24 Cefazolin Sodium/Dextrose 1 gm (/ Premix) 50 mls @ 100 mls/hr IV Q8H [facility] Stop: 10/03/18 00:29 Last Admin: 10/02/18 23:07 Dose: 100 mls/hr Midazolam HCl (Versed 1 Mg/Ml) Confirm Administered Dose 2 mg .ROUTE .STK-MED ONE Stop: 10/02/18 06:52 Morphine Sulfate (Morphine) 1 - 3 mg IVPUSH Q3H PRN PRN Reason: Pain Ondansetron HCl (Zofran) 4 mg IVPUSH .ONCE [place] Phenylephrine HCl (Phenylephrine In Ns 100 Mcg/Ml) Confirm Administered Dose 1 mg .ROUTE .STK-MED ONE Stop: 10/02/18 06:52 Propofol (Diprivan 20 Ml) Confirm Administered Dose 200 mg .ROUTE .STK-MED ONE Stop: 10/02/18 06:52 Tranexamic Acid (Cyklokapron) 2,000 mg IV ONETIME ONE Stop: 10/02/18 08:01 Last Admin: 10/02/18 10:43 Dose: Not Given Tranexamic Acid (Cyklokapron) Confirm Administered Dose 2,000 mg .ROUTE .STK- MED ONE Stop: 10/02/18 08:19 - Exam Quality Assessment: Urine Catheter, DVT Prophylaxis General: Alert, Oriented, Cooperative Neck: Supple Lungs: Clear to Auscultation, Normal Respiratory Effort Cardiovascular: Regular Rate, Regular Rhythm GI/Abdominal Exam: Normal Bowel Sounds, Soft, Non-Tender, No Mass Extremities: Normal Inspection, Normal Range of Motion, Non-Tender, No Pedal Edema Wound/Incisions: Dressing Dry and Intact Neurological: No New Focal Deficit Psy/Mental Status: Alert, Normal Affect, Normal Mood Consult PN Assessment/Plan Procedures: Procedures ASSAY OF MAGNESIUM (10/14/16) ASSAY OF TROPONIN QUANT (06/07/17) ASSAY THYROID STIM HORMONE (06/07/17) CHEST X-RAY 1 VIEW FRONTAL (06/07/17) COMPLETE CBC W/AUTO DIFF WBC (06/07/17) COMPREHEN METABOLIC PANEL (06/07/17) CT ABDOMEN W/O & W/DYE (01/04/14) CT HEAD/BRAIN W/O DYE (10/14/16) DRAIN/INJ JOINT/BURSA W/O US (07/17/15) ECG MONIT/REPRT UP TO 48 HRS (10/14/16) ELECTROCARDIOGRAM TRACING (06/07/17) EMERGENCY DEPT VISIT (06/07/17) EMERGENCY DEPT VISIT (10/14/16) EXTRACRANIAL BILAT STUDY (10/14/16) HYDRATION IV INFUSION INIT (06/07/17) LIPID PANEL (10/14/16) METABOLIC PANEL TOTAL CA (10/14/16) MR ANGIOGRAPHY HEAD W/O DYE (10/14/16) MR ANGIOGRAPHY NECK W/O DYE (10/14/16) MRI BRAIN STEM W/O & W/DYE (10/14/16) NEEDLE LOCALIZATION BY XRAY (07/17/15) OFFICE/OUTPATIENT VISIT EST (04/25/18) ROUTINE VENIPUNCTURE (06/07/17) THER/PROPH/DIAG INJ IV PUSH (10/14/16) TTE W/DOPPLER COMPLETE (10/14/16) URINALYSIS AUTO W/SCOPE (06/07/17) X-RAY EXAM HIP UNI 2-3 VIEWS (04/25/18) X-RAY EXAM OF HIP (06/12/15) X-RAY EXAM OF PELVIS (06/12/15) (1) S/P hip replacement SNOMED Code(s): 414236660, 781295215, 063707327, 963410880 Code(s): Z96.649 - PRESENCE OF UNSPECIFIED ARTIFICIAL HIP JOINT Current Visit: No Qualifiers: Laterality: left Qualified Code(s): Z96.642 - Presence of left artificial hip joint (2) HTN (hypertension) SNOMED Code(s): 36707796 Code(s): I10 - ESSENTIAL (PRIMARY) HYPERTENSION Current Visit: No Qualifiers: Hypertension type: essential hypertension Qualified Code(s): I10 - Essential (primary) hypertension Problem List Initiated/Reviewed/Updated: Yes Plan: This 83 year old female admitted with L anterior hip replacement, hospitalist service consulted for medical management 1. S/P L hip replacement: Per Orthopedics. Feeling a little nauseated this morning. Will monitor. 2. HTN: Stable. Continue home medications of Cozaar, Norvasc, and Metoprolol. Monitor BMP 3. Hx Hyponatremia: Stable. VTE prophylaxis: Would recommended when deemed appropriate by Orthopedics. Dispo: Ok from Hospitalist standpoint for discharge.
[2018-10-03] MEDS ORDERED: Losartan 50 MG Tab PO SCH (09:00)
[2018-10-03] MEDS ORDERED: Polyethylene Glycol 3350 Powder 17 GM Packet PO SCH (09:00)
[2018-10-03] MEDS ORDERED: amLODIPine 2.5 MG Tab PO SCH (09:00)
[2018-10-03 12:08] VITALS: BP 114/58
--- NOTE | 2018-10-04 13:30 | PCM.DCSUM1 ---
Discharge Summary - Hospital Course Free Text/Narrative:: Patient is admitted for elective left hip replacement. Diagnosis: Stroke: No - Discharge Data Discharge Date: 10/03/18 Discharge Disposition: Home, Self-Care 01 Condition: Good - Patient Summary/Data Operative Procedure(s) Performed: left anterior total hip arthroplasty Consults: Consultations 10/02/18 09:41 Consult to Physician [CONS] Routine PT Evaluation and Treatment [CONS] Routine Hospital Course: she was admitted and underwent uneventful hip replacement. Postoperatively she was admitted to the floor where pain was controlled and her diet was advanced. She participated in therapy and did well and was subsequently discharged home on postoperative day #1 - Patient Instructions Diet: Usual Diet as Tolerated Activity: Apply Ice, As Tolerated, Full Weight Bearing Driving: Do Not Drive Showering/Bathing: May Shower Wound/Incision Care: Keep Operative Site/Wound Site Clean and Dry, Do NOT Change Dressing Notify Provider of: Fever, Drainage - Discharge Plan *PRESCRIPTION DRUG MONITORING PROGRAM REVIEWED*: No *COPY OF PRESCRIPTION DRUG MONITORING REPORT IN PATIENT NABEEL: No Home Medications: Home Meds Losartan [Cozaar] 100 mg PO QAM 10/14/16 [History] Simvastatin [Zocor] 10 mg PO BEDTIME #30 tablet 10/15/16 [Rx] Metoprolol Succinate [Toprol XL] 50 mg PO BEDTIME 06/07/17 [History] Alendronate Sodium 70 mg PO WEEKLY 09/27/18 [History] Calcium Carb & Citrate/Vit D3 [Calcium + D3 ER Tablet] 1 cap PO BID 09/27/18 [ History] Glucosa Philip 2KCl/Chondroitin Philip [Glucosamine-Chondroitin Cap] 1 cap PO BID [History] Magnesium 250 mg PO DAILY 09/27/18 [History] Multivits-Min/Iron/FA/Lutein [Centrum Silver Women Tablet] 1 tab PO DAILY [History] amLODIPine [Norvasc] 2.5 mg PO QAM 09/27/18 [History] Patient Handouts: Acetaminophen; Hydrocodone tablets or capsules, Ondansetron tablets, Aspirin, ASA oral tablets, Total Hip Replacement, Care After, Easy-to- Read, Docusate capsules Referrals: Gudelia Oseguera PA [Physician Production Technologist] - 10/17/18 2:00 pm - Discharge Summary/Plan Comment DC Time >30 min.: No - Patient Data Vitals - Most Recent: Last Vital Signs Temp 36.3 C 10/03/18 12:06 Pulse 63 10/03/18 12:06 Resp 16 10/03/18 12:06 BP 114/58 L 10/03/18 12:06 Pulse Ox 96 10/03/18 12:06 Weight - Most Recent: 58.967 kg Med Orders - Current: Current Medications Discontinued Medications Hydrocodone Bitart/Acetaminophen (Delight 325-5 Mg) 1 - 2 tab PO Q4H PRN PRN Reason: Pain Last Admin: 10/03/18 03:49 Dose: 2 tab Al Hydroxide/Mg Hydroxide (Mag-Al Plus) 30 ml PO Q4H PRN PRN Reason: Indigestion Alendronate Sodium (Fosamax) 70 mg PO Sa@0800 [facility] Amlodipine Besylate (Norvasc) 2.5 mg PO QAM [facility] Last Admin: 10/03/18 08:42 Dose: Not Given Aspirin (Ecotrin) 325 mg PO BID [facility] Last Admin: 10/03/18 08:43 Dose: Not Given Bisacodyl (Dulcolax) 10 mg RECTAL DAILY PRN PRN Reason: Constipation Cefazolin Sodium (Ancef) Confirm Administered Dose 1 gm .ROUTE .STK-MED ONE Stop: 10/02/18 07:23 Cefazolin Sodium (Ancef) Confirm Administered Dose 1 gm .ROUTE .STK-MED ONE Stop: 10/02/18 07:23 Docusate Sodium (Colace) 100 mg PO BID PRN PRN Reason: Constipation Famotidine (Pepcid) 20 mg PO DAILY [facility] Last Admin: 10/03/18 08:44 Dose: Not Given Fentanyl (Sublimaze) Confirm Administered Dose 100 mcg .ROUTE .STK-MED ONE Stop: 10/02/18 06:52 Fentanyl (Sublimaze) 50 mcg IVPUSH Q5M PRN PRN Reason: Pain (severe 7-10) Stop: 10/03/18 07:50 Hydromorphone HCl (Dilaudid) 0.25 mg IVPUSH Q10M PRN PRN Reason: Pain (severe 7-10) Stop: 10/03/18 07:50 Lactated Ringer's (Ringers, Lactated) 1,000 mls @ 125 mls/hr IV ASDIRECTED [facility] Last Infusion: 10/02/18 15:20 Dose: Infused Lactated Ringer's (Ringers, Lactated) 1,000 mls @ 100 mls/hr IV ASDIRECTED [facility] Last Admin: 10/02/18 17:13 Dose: 100 mls/hr Sodium Chloride (Normal Saline) Confirm Administered Dose 20 mls @ as directed .ROUTE .STK-MED ONE Stop: 10/02/18 07:24 Cefazolin Sodium/Dextrose 1 gm (/ Premix) 50 mls @ 100 mls/hr IV Q8H [facility] Stop: 10/03/18 00:29 Last Admin: 10/02/18 23:07 Dose: 100 mls/hr Losartan Potassium (Cozaar) 100 mg PO QAM [facility] Last Admin: 10/03/18 08:41 Dose: Not Given Magnesium Oxide (Magnesium Oxide) 400 mg PO DAILY [facility] Last Admin: 10/03/18 08:44 Dose: Not Given Metoprolol Succinate (Toprol Xl) 50 mg PO BEDTIME [facility] Last Admin: 10/02/18 20:08 Dose: 50 mg Midazolam HCl (Versed 1 Mg/Ml) Confirm Administered Dose 2 mg .ROUTE .STK-MED ONE Stop: 10/02/18 06:52 Morphine Sulfate (Morphine) 1 - 3 mg IVPUSH Q3H PRN PRN Reason: Pain Morphine Sulfate (Morphine) 1 - 3 mg IVPUSH Q3H PRN PRN Reason: Pain Last Admin: 10/03/18 06:21 Dose: 2 mg Multivitamins/Minerals (Thera M Plus) 1 tab PO DAILY [facility] Last Admin: 10/03/18 08:43 Dose: Not Given Ondansetron HCl (Zofran) 4 mg IVPUSH .ONCE [facility] Ondansetron HCl (Zofran) 4 mg IVPUSH Q6H PRN PRN Reason: Nausea/Vomiting Last Admin: 10/03/18 08:10 Dose: 4 mg Phenylephrine HCl (Phenylephrine In Ns 100 Mcg/Ml) Confirm Administered Dose 1 mg .ROUTE .STK-MED ONE Stop: 10/02/18 06:52 Polyethylene Glycol (Miralax) 17 gm PO DAILY [facility] Last Admin: 10/03/18 08:12 Dose: Not Given Propofol (Diprivan 20 Ml) Confirm Administered Dose 200 mg .ROUTE .STK-MED ONE Stop: 10/02/18 06:52 Simvastatin (Zocor) 10 mg PO BEDTIME [facility] Last Admin: 10/02/18 20:08 Dose: 10 mg Sodium Chloride (Saline Flush) 10 ml FLUSH ASDIRECTED PRN PRN Reason: Keep Vein Open Sodium Chloride (Saline Flush) 2.5 ml FLUSH ASDIRECTED PRN PRN Reason: Keep Vein Open Tranexamic Acid (Cyklokapron) 2,000 mg IV ONETIME ONE Stop: 10/02/18 08:01 Last Admin: 10/02/18 10:43 Dose: Not Given Tranexamic Acid (Cyklokapron) Confirm Administered Dose 2,000 mg .ROUTE .[facility] ONE Stop: 10/02/18 08:19
[2018-10-07] MEDS ORDERED: Alendronate 70 MG Tab PO SCH (08:00)
== END 2018-10-03 15:30 | disposition home or self-care (01) | DRG 470 ==
LOC: MW.MS 06:46
PROVIDERS: ADMIT Orthopaedic Surgery; ATTEND Orthopaedic Surgery
PROC: 0SRB01A Replacement of Left Hip Joint with Metal Synthetic Substitute, Uncemented, Open Approach (ICD-10-PCS; principal; 2018-10-02)
DX: M16.12 Unilateral primary osteoarthritis, left hip (principal); I10 Essential (primary) hypertension; E78.5 Hyperlipidemia, unspecified; Z88.5 Allergy status to narcotic agent; Z88.8 Allergy status to other drugs, medicaments and biological substances; Z96.641 Presence of right artificial hip joint; Z87.11 Personal history of peptic ulcer disease; Z87.19 Personal history of other diseases of the digestive system
CPT/HCPCS: 36415; 76000; 76000-26; 80048; 83735; 85014; 85018; 85025; 86850; 86900; 86901; 97110-GP; 97161-GP; A9270-GY; C1713; C1776; J0690; J2250; J2270; J2370; J2405; J2704; J3010; J7120

== ENCOUNTER 2023-09-13 12:02 | Emergency (ER) | payer MEDICARE, OTHER ==
[2023-09-13] MEDS ORDERED: Albuterol/Ipratropium 3.0-0.5 MG/3 ML Neb Soln NEB ONE (14:40)
[2023-09-13 14:47] LABS: CORONAVIRUS COVID-19 NAA NEGATIVE (NEGATIVE); INFLUENZA A NAA NEGATIVE (NEGATIVE); INFLUENZA B NAA NEGATIVE (NEGATIVE); RESPIRATORY SYNCYTIAL VIR NAA NEGATIVE (NEGATIVE)
[2023-09-13 14:53] LABS: HEMATOCRIT 38.8 % (37.0-47.0); HEMOGLOBIN 13.5 g/dL (12.0-16.0); MEAN CORPUSCULAR HEMOGLOBIN 31.5 pg (28.0-32.0); MEAN CORPUSCULAR HGB CONC 34.8 g/dL (32.0-36.0); MEAN CORPUSCULAR VOLUME 90.4 fL (83.0-99.0); MEAN PLATELET VOLUME 9.4 fL (9.4-12.3); PLATELET COUNT,PLT 258 K/uL (150-400); RED BLOOD CELL COUNT 4.29 M/uL (4.10-5.30); WHITE BLOOD CELL COUNT,WBC 11.59 K/uL (3.9-11.3)
[2023-09-13 15:21] LABS: A/G RATIO 0.9 (0.9-1.6); ALBUMIN 3.4 g/dL (3.4-5.0); BILIRUBIN TOTAL 0.7 mg/dL (0.2-1.0); CALCIUM 9.4 mg/dL (8.5-10.1); CARBON DIOXIDE,CO2 26.6 mmol/L (21.0-32.0); CREATININE 0.9 mg/dL (0.6-1.0); EST CRCL DRUG DOSING (CG) 34.17 mL/min; MAGNESIUM 1.7 mg/dL (1.8-2.4); POTASSIUM,K 3.9 mmol/L (3.5-5.1); PROTEIN TOTAL,TP 7.1 g/dL (6.4-8.2)
[2023-09-13] MEDS ORDERED: Magnesium Sulfate/Water 2 GM in Premix Bag 1 BAG IV ONE (15:25)
[2023-09-13 15:48] LABS: LYMPHOCYTES ABSOLUTE MAN 1.74 K/uL (1.00-4.80); LYMPHOCYTES PERCENT MAN 15 % (24-44); MONOCYTES ABSOLUTE MAN 1.04 K/uL (0.00-0.80); MONOCYTES PERCENT MAN 9 % (0-8); SEG NEUTROPHILS ABSOLUTE MAN 8.81 K/uL (1.80-7.70); SEG NEUTROPHILS PERCENT MAN 76 % (41-71)
[2023-09-13] MEDS ORDERED: Levofloxacin 500 MG Tab PO ONE (16:43)
[2023-09-13] MEDS ORDERED: Albuterol 8 GM Inhaler INH ONE (16:44)
[2023-09-13 17:27] VITALS: BP 140/71; PULSE 77
== END 2023-09-13 17:27 | disposition home or self-care (01) ==
LOC: MW.ED 12:02
DX: J20.9 Acute bronchitis, unspecified (principal); I10 Essential (primary) hypertension; Z88.5 Allergy status to narcotic agent; Z88.6 Allergy status to analgesic agent; Z88.8 Allergy status to other drugs, medicaments and biological substances; Z79.899 Other long term (current) drug therapy; Z90.49 Acquired absence of other specified parts of digestive tract; Z90.710 Acquired absence of both cervix and uterus; Z20.822 Contact with and (suspected) exposure to COVID-19
CPT/HCPCS: 0241U; 36415; 71046; 80053; 83690; 83735; 83880; 85025; 87651; 96365; 96366; 99284; A9270; J3475; J7620-GY

== ENCOUNTER 2024-10-06 03:30 | Inpatient (IN) | payer MEDICARE, OTHER ==
[2024-10-06] MEDS ORDERED: Sodium Chloride 0.9% 10 ML Syringe FLUSH PRN (03:51)
[2024-10-06] MEDS ORDERED: Sodium Chloride 0.9% 2.5 ML Syringe FLUSH PRN (03:51)
[2024-10-06] MEDS: Diltiazem 25 MG/5 ML SDV IVPUSH ONE (04:25)
[2024-10-06 04:30] LABS: BASOPHILS ABSOLUTE AUTO 0.05 K/uL (0.00-0.20); BASOPHILS PERCENT AUTO 0.5 % (0.0-1.0); EOSINOPHILS ABSOLUTE AUTO 0.07 K/uL (0.00-0.45); EOSINOPHILS PERCENT AUTO 0.7 % (0.0-6.0); HEMATOCRIT 43.6 % (37.0-47.0); HEMOGLOBIN 15.3 g/dL (12.0-16.0); IMMATURE GRAN ABSOLUTE AUTO 0.03 K/uL (0.00-0.05); IMMATURE GRAN PERCENT AUTO 0.3 % (0.0-0.4); LYMPHOCYTES ABSOLUTE AUTO 1.21 K/uL (1.00-4.80); LYMPHOCYTES PERCENT AUTO 12.9 % (24.0-44.0); MEAN CORPUSCULAR HEMOGLOBIN 31.1 pg (28.0-32.0); MEAN CORPUSCULAR HGB CONC 35.1 g/dL (32.0-36.0); MEAN CORPUSCULAR VOLUME 88.6 fL (83.0-99.0); MEAN PLATELET VOLUME 8.9 fL (9.4-12.3); MONOCYTES ABSOLUTE AUTO 0.82 K/uL (0.00-0.80); MONOCYTES PERCENT AUTO 8.8 % (0.0-8.0); NEUTROPHILS ABSOLUTE AUTO 7.19 K/uL (1.80-7.70); NEUTROPHILS PERCENT AUTO 76.8 % (41.0-71.0); PLATELET COUNT,PLT 299 K/uL (150-400); RED BLOOD CELL COUNT 4.92 M/uL (4.10-5.30); WHITE BLOOD CELL COUNT,WBC 9.37 K/uL (3.9-11.3)
[2024-10-06 04:52] LABS: A/G RATIO 1.1 (0.9-1.6); BILIRUBIN TOTAL 0.6 mg/dL (0.2-1.0); CALCIUM 9.6 mg/dL (8.5-10.1); CARBON DIOXIDE,CO2 23.6 mmol/L (21.0-32.0); EST CRCL DRUG DOSING (CG) 28.78 mL/min; POTASSIUM,K 3.6 mmol/L (3.5-5.1); PROTEIN TOTAL,TP 7.8 g/dL (6.4-8.2)
[2024-10-06 04:53] LABS: TSH ULTRASENSITIVE 4.47 uIU/mL (0.36-3.74)
[2024-10-06] MEDS: Diltiazem 100 MG in Sodium Chloride 0.9% 100 ML IV SCH (06:02)
[2024-10-06] MEDS: Furosemide 20 MG/2 ML VIAL IVPUSH ONE (06:02)
[2024-10-06] MEDS: Sodium Chloride 0.9% 500 ML IV SCH (06:24)
[2024-10-06] MEDS: Aspirin 81 MG Tab.Chew PO ONE (06:24)
[2024-10-06] MEDS: Heparin Sodium/0.45% NaCl 25,000 UNITS/250 ML BAG IV SCH (06:25)
[2024-10-06] MEDS: Heparin Sodium 5,000 Units/ML Vial IVPUSH ONE (06:25)
[2024-10-06 07:01] LABS: T4 FREE 1.16 ng/dL (0.76-1.46)
[2024-10-06] MEDS: Furosemide 40 MG/4 ML VIAL IVPUSH ONE (07:45)
[2024-10-06] MEDS ORDERED: Acetaminophen 325 MG Tab PO PRN (11:19)
[2024-10-06] MEDS ORDERED: Polyethylene Glycol 3350 Powder 17 GM Packet PO PRN (11:19)
[2024-10-06] MEDS ORDERED: Albuterol/Ipratropium 3.0-0.5 MG/3 ML Neb Soln NEB PRN (11:19)
[2024-10-06] MEDS ORDERED: Ondansetron 4 MG/2 ML SDV IVPUSH PRN (11:19)
[2024-10-06] MEDS: Metoprolol Succinate 100 MG Tab.ER PO SCH (16:34)
[2024-10-06] MEDS: Furosemide 40 MG/4 ML VIAL IVPUSH SCH (20:13)
[2024-10-06] MEDS ORDERED: Melatonin 3 MG Tab PO PRN (21:00)
[2024-10-07 07:20] LABS: BASOPHILS ABSOLUTE AUTO 0.08 K/uL (0.00-0.20); EOSINOPHILS ABSOLUTE AUTO 0.16 K/uL (0.00-0.45); EOSINOPHILS PERCENT AUTO 1.9 % (0.0-6.0); HEMATOCRIT 41.7 % (37.0-47.0); HEMOGLOBIN 14.6 g/dL (12.0-16.0); IMMATURE GRAN ABSOLUTE AUTO 0.02 K/uL (0.00-0.05); IMMATURE GRAN PERCENT AUTO 0.2 % (0.0-0.4); LYMPHOCYTES ABSOLUTE AUTO 1.41 K/uL (1.00-4.80); LYMPHOCYTES PERCENT AUTO 16.8 % (24.0-44.0); MEAN CORPUSCULAR HEMOGLOBIN 31.5 pg (28.0-32.0); MEAN CORPUSCULAR VOLUME 89.9 fL (83.0-99.0); MEAN PLATELET VOLUME 8.9 fL (9.4-12.3); MONOCYTES ABSOLUTE AUTO 1.03 K/uL (0.00-0.80); MONOCYTES PERCENT AUTO 12.3 % (0.0-8.0); NEUTROPHILS PERCENT AUTO 67.8 % (41.0-71.0); PLATELET COUNT,PLT 288 K/uL (150-400); RED BLOOD CELL COUNT 4.64 M/uL (4.10-5.30)
[2024-10-07 07:35] LABS: CALCIUM 9.2 mg/dL (8.5-10.1); CARBON DIOXIDE,CO2 27.4 mmol/L (21.0-32.0); CREATININE 0.9 mg/dL (0.6-1.0); EST CRCL DRUG DOSING (CG) 31.98 mL/min; POTASSIUM,K 4.1 mmol/L (3.5-5.1)
[2024-10-07] MEDS: Furosemide 40 MG/4 ML VIAL IVPUSH SCH (09:08)
[2024-10-07] MEDS: Diltiazem 120 MG Cap.CD PO SCH (10:00)
[2024-10-08 06:37] LABS: HEMATOCRIT 42.1 % (37.0-47.0); HEMOGLOBIN 14.3 g/dL (12.0-16.0); MEAN CORPUSCULAR HEMOGLOBIN 30.8 pg (28.0-32.0); MEAN CORPUSCULAR VOLUME 90.7 fL (83.0-99.0); MEAN PLATELET VOLUME 9.4 fL (9.4-12.3); PLATELET COUNT,PLT 307 K/uL (150-400); RED BLOOD CELL COUNT 4.64 M/uL (4.10-5.30); WHITE BLOOD CELL COUNT,WBC 11.42 K/uL (3.9-11.3)
[2024-10-08 06:52] LABS: CALCIUM 9.3 mg/dL (8.5-10.1); CARBON DIOXIDE,CO2 25.1 mmol/L (21.0-32.0); CREATININE 1.1 mg/dL (0.6-1.0); EST CRCL DRUG DOSING (CG) 25.73 mL/min
[2024-10-08 07:04] LABS: EOSINOPHILS ABSOLUTE MAN 0.11 K/uL (0.00-0.45); EOSINOPHILS PERCENT MAN 1 % (0-6); LYMPHOCYTES ABSOLUTE MAN 2.74 K/uL (1.00-4.80); LYMPHOCYTES PERCENT MAN 24 % (24-44); MONOCYTES ABSOLUTE MAN 0.91 K/uL (0.00-0.80); MONOCYTES PERCENT MAN 8 % (0-8); SEG NEUTROPHILS ABSOLUTE MAN 7.65 K/uL (1.80-7.70); SEG NEUTROPHILS PERCENT MAN 67 % (41-71)
[2024-10-08] MEDS: Apixaban 2.5 MG Tab PO SCH (08:49)
[2024-10-08] MEDS: Losartan 50 MG Tab PO SCH (08:50)
[2024-10-08] MEDS ORDERED: Heparin Sodium 5,000 Units/ML Vial SUBCUT SCH (09:00)
[2024-10-08 12:26] VITALS: BP 123/60; PULSE 54
== END 2024-10-08 13:05 | disposition home or self-care (01) | DRG 309 ==
LOC: MW.ED 03:30 → MW.ICU 10:11 → MW.MS 10-07 12:38
PROVIDERS: ADMIT Family Medicine; ATTEND Family Medicine
DX: I21.4 Non-ST elevation (NSTEMI) myocardial infarction (principal); I48.91 Unspecified atrial fibrillation; I11.0 Hypertensive heart disease with heart failure; I50.9 Heart failure, unspecified; R79.89 Other specified abnormal findings of blood chemistry; R79.1 Abnormal coagulation profile; I24.89 Other forms of acute ischemic heart disease; E78.00 Pure hypercholesterolemia, unspecified; K21.9 Gastro-esophageal reflux disease without esophagitis; M19.90 Unspecified osteoarthritis, unspecified site; Z96.649 Presence of unspecified artificial hip joint; I10 Essential (primary) hypertension; Z66 Do not resuscitate; Z88.5 Allergy status to narcotic agent; Z88.8 Allergy status to other drugs, medicaments and biological substances; Z79.899 Other long term (current) drug therapy; Z87.440 Personal history of urinary (tract) infections; Z90.89 Acquired absence of other organs; Z90.49 Acquired absence of other specified parts of digestive tract; Z90.710 Acquired absence of both cervix and uterus; Z98.890 Other specified postprocedural states
CPT/HCPCS: 36415; 71045; 80053; 83690; 83735; 83880; 84439; 84443; 84484 ×2; 85025; 85730; 87428; 93005 ×6; A9270; J1644 ×2; J1940 ×2; J3490 ×3; J7040; 80048; 93010; 93306; 99223; 99232; 99238; 99284

== ENCOUNTER 2024-10-12 01:24 | Emergency (ER) | payer MEDICARE, OTHER ==
[2024-10-12] MEDS ORDERED: Sodium Chloride 0.9% 2.5 ML Syringe FLUSH PRN (01:38)
[2024-10-12] MEDS ORDERED: Sodium Chloride 0.9% 10 ML Syringe FLUSH PRN (01:38)
[2024-10-12] MEDS ORDERED: Sodium Chloride 0.9% 20 ML SDV IV PRN (01:38)
[2024-10-12 02:16] LABS: BASOPHILS ABSOLUTE AUTO 0.06 K/uL (0.00-0.20); BASOPHILS PERCENT AUTO 0.7 % (0.0-1.0); EOSINOPHILS ABSOLUTE AUTO 0.14 K/uL (0.00-0.45); EOSINOPHILS PERCENT AUTO 1.6 % (0.0-6.0); HEMATOCRIT 39.5 % (37.0-47.0); HEMOGLOBIN 13.9 g/dL (12.0-16.0); IMMATURE GRAN ABSOLUTE AUTO 0.03 K/uL (0.00-0.05); IMMATURE GRAN PERCENT AUTO 0.3 % (0.0-0.4); LYMPHOCYTES ABSOLUTE AUTO 1.29 K/uL (1.00-4.80); LYMPHOCYTES PERCENT AUTO 14.4 % (24.0-44.0); MEAN CORPUSCULAR HEMOGLOBIN 31.5 pg (28.0-32.0); MEAN CORPUSCULAR HGB CONC 35.2 g/dL (32.0-36.0); MEAN CORPUSCULAR VOLUME 89.6 fL (83.0-99.0); MEAN PLATELET VOLUME 9.5 fL (9.4-12.3); MONOCYTES ABSOLUTE AUTO 1.16 K/uL (0.00-0.80); NEUTROPHILS ABSOLUTE AUTO 6.25 K/uL (1.80-7.70); PLATELET COUNT,PLT 282 K/uL (150-400); RED BLOOD CELL COUNT 4.41 M/uL (4.10-5.30); WHITE BLOOD CELL COUNT,WBC 8.93 K/uL (3.9-11.3)
[2024-10-12 02:20] LABS: PH,VENOUS 7.43 (7.31-7.41)
[2024-10-12 02:51] LABS: A/G RATIO 1.1 (0.9-1.6); ALBUMIN 3.6 g/dL (3.4-5.0); BILIRUBIN TOTAL 0.4 mg/dL (0.2-1.0); CREATININE 1.1 mg/dL (0.6-1.0); EST CRCL DRUG DOSING (CG) 26.16 mL/min; POTASSIUM,K 4.1 mmol/L (3.5-5.1)
[2024-10-12 03:38] VITALS: BP 169/65; PULSE 57
== END 2024-10-12 03:37 | disposition home or self-care (01) ==
LOC: MW.ED 01:24
DX: I48.0 Paroxysmal atrial fibrillation (principal); I11.9 Hypertensive heart disease without heart failure; Z90.49 Acquired absence of other specified parts of digestive tract; Z90.710 Acquired absence of both cervix and uterus; Z79.899 Other long term (current) drug therapy; Z88.6 Allergy status to analgesic agent; Z88.5 Allergy status to narcotic agent; Z88.8 Allergy status to other drugs, medicaments and biological substances; Z75.8 Other problems related to medical facilities and other health care
CPT/HCPCS: 36415; 71045; 71045-26; 80053; 82803; 83880; 84484; 85025; 87428-QW; 93005; 99285